=== PATIENT | female | born 2005 | race Caucasian/White ===

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

== ENCOUNTER 2023-02-24 23:06 | Emergency (ER) | payer OTHER, SELFPAY ==
--- NOTE | ~2023-02-24 | XR_ITS ---
EXAMINATION: XR ANKLE, RIGHT CLINICAL INFORMATION: Injury COMPARISON: None available. TECHNIQUE: AP, lateral, and mortise views of the right ankle. FINDINGS: No acute fracture or dislocation. Ankle mortise is congruent. Talar dome intact. Moderate lateral soft tissue swelling. No ankle joint effusion. XR/XR ankle RT 2V IMPRESSION: * No acute fracture or dislocation. * Moderate lateral soft tissue swelling.
[2023-02-24 23:12] VITALS: BP 134/82; PULSE 113; RESP 20; TEMP 37.1; O2SAT 98; BMI 26.3
--- NOTE | 2023-02-24 23:49 | ED_ITS ---
HPI - Extremity Injury (Lower) General Chief Complaint: Extremity Injury, Lower Stated Complaint: ankle inj Time Seen by Provider: 02/24/23 23:42 Source: patient Mode of arrival: ambulatory Limitations: no limitations History of Present Illness HPI Narrative: Patient comes to the emergency room complaining of right ankle pain. Patient states that earlier today, she was walking down the stairs and missed a step and her ankle rolled in words. Patient states that she has been walking with a limp. Patient states that the swelling was much worse today comment happen approximately 10 hours ago. Patient has not taking any medication for pain/swelling. Patient has been icing her ankle. Patient denies any other injuries. Related Data Previous Rx's Medication Instructions Recorded ondansetron 4 mg disintegrating 4 mg PO Q8H PRN nausea and 02/01/22 tablet vomiting 5 days #14 tabs cefdinir 300 mg capsule 300 mg PO BID 7 days #14 caps 08/25/22 ondansetron 4 mg disintegrating 4 mg PO Q8H 3 days #9 tabs 08/25/22 tablet ibuprofen 600 mg tablet 600 mg PO TID PRN fever or pain 02/25/23 #20 tabs Allergies Allergy/AdvReac Type Severity Reaction Status Date / Time No Known Allergies Allergy Verified 08/25/22 15:28 Review of Systems Review of Systems: Constitutional : No Weight loss, No Fever, No Chills, No Night Sweats, No Fatigue, No Malaise ENT/Mouth : No Hearing loss, No Ear Pain, No Nasal Congestion, No Sinus Pain, No Hoarseness, No sore throat, No Rhinorrhea, No Swallowing Difficulty Eyes: No Eye Pain, No Swelling, No Redness, No Foreign Body, No Discharge, No Vision Changes Cardiovascular : No Chest Pain, No SOB, No Dyspnea on Exertion, No Orthopnea, No Edema, No Palpitations Respiratory : No Cough, No Sputum, No Wheezing, No Smoke Exposure, No Dyspnea Gastrointestinal : No Nausea, No Vomiting, No Diarrhea, No Constipation, No abdominal Pain, No Hematochezia, No Melena Genitourinary : no irregular bleeding, No Dysuria, No Urinary Frequency, No Hematuria, No Urinary Incontinence, No Urgency, No Flank Pain, No Urinary Flow Changes, No Hesitancy Musculoskeletal : Complaining of right ankle pain and swelling, No Myalgias, No Joint Swelling Skin : No Skin Lesions, No rash Neuro : No Weakness, No Numbness, No Paresthesias, No Loss of Consciousness, No Dizziness, No Headache Psych : No Anxiety/Panic, No Depression, No SI/HI/AH/VH, No Social Issues, Heme/Lymph: No Bruising, No Bleeding,No Lymphadenopathy Endocrine : No Polyuria, No Polydipsia, No Temperature Intolerance PMFSH Social History Social History Advance Directives: No Advance Directives Information Provided: No Physical Exam Vital Signs: Vital Signs: Last Vital Signs Temp 98.7 F 02/24/23 23:12 Pulse 113 H 02/24/23 23:12 Resp 20 02/24/23 23:12 BP 134/82 02/24/23 23:12 Pulse Ox 98 02/24/23 23:12 O2 Del Method Room Air 02/24/23 23:12 BMI result Body Mass Index 26.3 Const: Other: Appearance: Alert. Oriented X3. No acute distress. Eyes: Pupils equal, round and reactive to light. ENT: Pharynx normal. Neck: Normal inspection. Neck supple. No lymph nodes noted. No crepitus CVS: Normal heart rate and rhythm. Pulses normal. Normal S1 and S2 Respiratory: No respiratory distress. Breath sounds normal. No Wheezing. No rales Abdomen: Soft and nontender. No rigidity. No distention. Skin: Skin warm and dry. Normal skin color. Normal skin turgor. Extremities: Right ankle pain to palpation over the lateral malleolus, swe lling, very mild ecchymosis. Patient states that as long as she does not put any weight on her foot, she has no pain. Neuro: Oriented X 3. No motor deficit. No sensory deficit. Moving all extremities. No slurred speech. CN 2 through 12 grossly intact Psych: calm, cooperative, normal affect Course Course Course Narrative: -my interpretation of x-ray of the ankle: There is some edema/soft tissue swelling, normal alignment, no obvious fracture -patient states that crutches will help her move a bit better around her house and school. -discussed with the patient to keep applying ice intermittently, no heat, and to make sure that she makes gentle exercises with her ankle to avoid frozen joint Medical Decision Making Differential Diagnosis Differential Diagnoses: The differential diagnosis associated with the presentation includes (Ankle sprain, contusion, fracture) Independent Interpretation I performed an independent interpretation of an: Plain X-Ray Radiology Impression Discussion of test interpretation with radiology: I have reviewed the radiologist's reading. Radiologist Impression: FINDINGS: No acute fracture or dislocation. Ankle mortise is congruent. Talar dome intact. Moderate lateral soft tissue swelling. No ankle joint effusion. XR/XR ankle RT 2V IMPRESSION: * No acute fracture or dislocation. * Moderate lateral soft tissue swelling. Discharge Plan Discharge Clinical Impression: Ankle sprain and strain Patient Disposition: Home, Self-Care Instructions: Ankle Sprain (ED) Additional Instructions: Please follow-up with your primary care physician tomorrow. If you have any worsening or new symptoms, please return to the emergency room or call 911 Prescriptions: New ibuprofen 600 mg tablet 600 mg PO TID PRN (Reason: fever or pain) Qty: 20 0RF No Action ondansetron 4 mg tablet,disintegrating 4 mg PO Q8H PRN (Reason: nausea and vomiting) 5 Days Qty: 14 0RF ondansetron 4 mg tablet,disintegrating 4 mg PO Q8H 3 Days Qty: 9 0RF cefdinir 300 mg capsule 300 mg PO BID 7 Days Qty: 14 0RF Stand Alone Forms: Work/School Release
[2023-02-25] MEDS: Ibuprofen 600 MG TABLET PO (00:15)
--- NOTE | 2023-02-25 00:39 | PC.NURSE ---
pt [id number] reports L. ankle injury x 1 day. +csm before and after dino bandage. crutch training provided pt able to ambulate comfortably with crutches. pt verbalizes understanding d/c instructions.
== END 2023-02-25 00:40 | disposition home or self-care (01) ==
PROVIDERS: Emergency Provider Emergency Medicine
DX: S93.401A Sprain of unspecified ligament of right ankle, initial encounter (principal); S96.911A Strain of unspecified muscle and tendon at ankle and foot level, right foot, initial encounter; X58.XXXA Exposure to other specified factors, initial encounter; Y93.9 Activity, unspecified; Y92.9 Unspecified place or not applicable; Y99.9 Unspecified external cause status; M25.571 Pain in right ankle and joints of right foot
CPT/HCPCS: 73600; 99283